=== PATIENT | male | born 1995 | race Caucasian/White ===

== ENCOUNTER → 2025-04-21 | Outpatient (CLI) | payer BC, SELFPAY ==
--- NOTE | 2025-04-21 17:47 | RAD_ITS ---
PROCEDURE: FINGER(S) MIN 2 VIEWS 04/21/2025 REASON FOR EXAM: INJURY TECHNIQUE: FINGER(S) MIN 2 VIEWS COMPARISON: None RAD/Finger(s) Min 2 Views IMPRESSION: Acute minimally displaced avulsion fracture at the lateral base of the 3rd dist al phalanx. Mild associated soft tissue edema. No radiographic foreign body. No dislocations. Reading Location: [facility]
== END | disposition home or self-care (01) ==
LOC: MTRAD 17:22
PROVIDERS: Referring Provider Physician Assistant; Visit Provider Physician Assistant
DX: S69.92XA Unspecified injury of left wrist, hand and finger(s), initial encounter (principal); X58.XXXA Exposure to other specified factors, initial encounter
CPT/HCPCS: 73140